=== PATIENT | female | born 1970 | race Caucasian/White ===

== ENCOUNTER 2023-12-04 08:30 | Inpatient (IN) | payer MEDICAID ==
[~2023-12-04] VITALS: Ht 162.6 cm; Wt 74.2 kg
[~2023-12-04 08:30] MED LIST: BLOO-1812 MC
[2023-12-04] MEDS: DEXTROSE 50% WATER 50ML SYRINGE IV ONE ×2 (08:41→08:47)
[2023-12-04 09:13] LABS: BASOPHILS % 0.2 % (0.0-2.0); EOSINOPHILS % 0.5 % (0.0-5.0); HEMATOCRIT. 37.6 % (36.0-48.0); HEMOGLOBIN. 12.4 g/dL (12.0-16.0); LYMPHOCYTES % 12.9 % (20.0-50.0); MEAN CORPUSCULAR HEMOGLOBIN 30.6 pg (28.0-32.0); MEAN CORPUSCULAR VOLUME 92.7 fL (81.0-99.0); MEAN PLATELET VOLUME 8.7 fl (7.4-10.4); MONOCYTES % 2.7 % (2.0-8.0); NEUTROPHILS % 83.7 % (40.0-76.0); PLATELET 246 x1000/uL (130-400); RED BLOOD CELL COUNT 4.05 mill/uL (4.2-5.4); RED CELL DISTRIBUTION WIDTH 13.4 % (11.6-14.6); WHITE BLOOD COUNT 9.3 x1000/uL (4.5-11.0)
[2023-12-04 09:23] LABS: CHLORIDE 101 mEq/L (98-107); POTASSIUM 4.9 mEq/L (3.5-5.1); SODIUM 134 mEq/L (136-145)
[2023-12-04 09:24] LABS: CARBON DIOXIDE 28 mEq/L (21-32)
[2023-12-04 09:29] LABS: CREATININE 0.8 mg/dL (0.6-1.0); GLUCOSE 207 mg/dL (70-105); UREA NITROGEN BLOOD 19 mg/dL (9-23)
[2023-12-04 09:31] LABS: ALANINE AMINOTRANSFERASE 31 IU/L (10-49); ALBUMIN 4.3 g/dL (3.2-4.8); ASPARTATE AMINOTRANSFERASE 22 IU/L (<34); BILIRUBIN TOTAL 0.4 mg/dL (0.1-1.0); PROTEIN TOTAL 6.9 g/dL (6.0-8.3)
[2023-12-04 10:19] LABS: CLARITY URINE CLOUDY (CLEAR); COLOR URINE YELLOW (YELLOW); GLUCOSE URINE 3+ (NEGATIVE); KETONES URINE NEGATIVE (NEGATIVE); LEUKOCYTE ESTERASE URINE NEGATIVE (NEGATIVE); NITRITE URINE NEGATIVE (NEGATIVE); OCCULT BLOOD URINE 3+ (NEGATIVE); PH URINE 5.5 (4.5-8.0); PROTEIN URINE 1+ (NEGATIVE); SPECIFIC GRAVITY URINE 1.017 (1.005-1.030); UROBILINOGEN URINE 0.2 E.U./dL (0.2-1.0)
[2023-12-04 10:32] LABS: SQUAMOUS EPITHELIAL CELL URINE 3+ /lpf (RARE/1+)
[2023-12-04 10:33] LABS: BACTERIA URINE 3+; WBC URINE 0-2 /hpf (0-2)
[2023-12-04] MEDS ORDERED: IPRATROPIUM/ALBUTEROL 0.5-3(2.5)MG/3ML NEB NEB PRN (17:15)
[2023-12-04] MEDS ORDERED: MAGNESIUM/ALUMINUM HYDROXIDE/SIMETHICONE 30ML UDC PO PRN (17:15)
[2023-12-04] MEDS ORDERED: DOCUSATE SODIUM 100MG CAPSULE PO PRN (17:15)
[2023-12-04] MEDS ORDERED: GUAIFENESIN 200MG/10ML SUGAR FREE UDC PO PRN (17:15)
[2023-12-04] MEDS ORDERED: DEXTROSE 50% WATER 50ML SYRINGE IV PRN (17:15)
[2023-12-04] MEDS ORDERED: NITROGLYCERIN 0.4MG TABLET SL SL PRN (17:15)
[2023-12-04] MEDS ORDERED: CLONIDINE 0.1MG TABLET PO PRN (17:15)
[2023-12-04] MEDS ORDERED: ACETAMINOPHEN 325MG TABLET PO PRN ×2 (17:15)
[2023-12-04] MEDS ORDERED: ONDANSETRON HCL 4MG/2ML INJ IV PRN (17:15)
[2023-12-04] MEDS ORDERED: ZOLPIDEM TARTRATE 5MG TABLET PO PRN (17:15)
[2023-12-04] MEDS ORDERED: KETOROLAC 15MG/ML VIAL IV PRN (17:30)
[2023-12-04] MEDS: DEXT 5%/LACTATED RINGERS 1,000 ML IV SCH (18:07)
[2023-12-04] MEDS: BLOOD SUGAR DIAGNOSTIC STRIP TEST SCH (18:07)
[2023-12-04] MEDS: INSULIN LISPRO 100 UNITS/ML SUBCUT SCH (18:09)
[2023-12-04 20:31] LABS: IRON 51 ug/dL (50-170); TRIGLYCERIDE 167 mg/dL (0-150)
[2023-12-04 20:32] LABS: LDL CHOLESTEROL 53 mg/dL (5-100)
[2023-12-04 20:33] LABS: CHOLESTEROL 115 mg/dL (<200); HDL CHOLESTEROL 43 mg/dL (>65)
[2023-12-04 20:34] LABS: TOTAL IRON BINDING CAPACITY 373 ug/dl (250-425)
[2023-12-04 20:36] LABS: FOLIC ACID (FOLATE) SERUM 17.89 ng/mL (>5.38); T4 FREE 1.14 ng/dL (0.89-1.76); THYROID STIMULATING HORMONE 0.78 uIU/mL (0.55-4.78); VITAMIN B12 SERUM 590 pg/mL (211-911)
[2023-12-04 21:14] VITALS: BP 145/78; PULSE 88; RESP 18; TEMP 36.89184; O2SAT 98
[2023-12-04 21:48] VITALS: BP 145/78; PULSE 88; RESP 17; TEMP 36.9184
[2023-12-04] MEDS: ASCORBIC ACID 500 MG TABLET PO SCH (22:24)
[2023-12-04] MEDS: FAMOTIDINE 20MG TABLET PO SCH (22:24)
[2023-12-05] VITALS: BP 120/74; PULSE 105; RESP 22; TEMP 36.72516; O2SAT 97
[2023-12-05 00:44] LABS: CREATINE KINASE 72 IU/L (34-145)
[2023-12-05 01:00] LABS: TROPONIN I HIGH SENSITIVITY < 4 ng/L (3.0-34)
[2023-12-05 04:00] VITALS: PULSE 92; RESP 14; O2SAT 100
[2023-12-05 04:54] VITALS: BP 119/72; PULSE 80; RESP 13; TEMP 36.55848; O2SAT 99
[2023-12-05 07:22] LABS: *AMPHETAMINES SCREEN URINE NEGATIVE (NEGATIVE); *BARBITURATES SCREEN URINE NEGATIVE (NEGATIVE); *BENZODIAZEPINES SCREEN URINE NEGATIVE (NEGATIVE); *COCAINE SCREEN URINE NEGATIVE (NEGATIVE); METHADONE URINE SCREEN NEGATIVE (NEGATIVE)
[2023-12-05 07:23] LABS: CANNABINOID URINE SCREEN NEGATIVE (NEGATIVE); ECSTASY MDMA SCREEN URINE NEGATIVE (NEGATIVE); OPIATES URINE SCREEN NEGATIVE (NEGATIVE); PHENCYCLIDINE URINE SCREEN NEGATIVE (NEGATIVE)
[2023-12-05 07:36] LABS: CHLORIDE 106 mEq/L (98-107); POTASSIUM 4.5 mEq/L (3.5-5.1); SODIUM 138 mEq/L (136-145)
[2023-12-05 07:40] LABS: CALCIUM 8.5 mg/dL (8.7-10.4); CARBON DIOXIDE 27 mEq/L (21-32); CREATINE KINASE MB FRACTION 0.6 ng/mL (0.5-3.6)
[2023-12-05 07:42] LABS: BASOPHILS % 0.4 % (0.0-2.0); EOSINOPHILS % 1.3 % (0.0-5.0); HEMATOCRIT. 33.6 % (36.0-48.0); HEMOGLOBIN. 11.3 g/dL (12.0-16.0); MEAN CORPUSCULAR HEMOGLOBIN 31.1 pg (28.0-32.0); MEAN CORPUSCULAR HGB CONC 33.8 g/dL (31.0-37.0); MEAN CORPUSCULAR VOLUME 92.1 fL (81.0-99.0); MEAN PLATELET VOLUME 9.1 fl (7.4-10.4); MONOCYTES % 6.6 % (2.0-8.0); NEUTROPHILS % 66.7 % (40.0-76.0); PLATELET 250 x1000/uL (130-400); RED BLOOD CELL COUNT 3.64 mill/uL (4.2-5.4); RED CELL DISTRIBUTION WIDTH 13.5 % (11.6-14.6)
[2023-12-05 07:43] LABS: CREATINE KINASE 61 IU/L (34-145)
[2023-12-05 07:45] LABS: ALANINE AMINOTRANSFERASE 28 IU/L (10-49); CREATININE 0.7 mg/dL (0.6-1.0); GLUCOSE 131 mg/dL (70-105); UREA NITROGEN BLOOD 15 mg/dL (9-23)
[2023-12-05 07:47] LABS: ALBUMIN 3.5 g/dL (3.2-4.8); ASPARTATE AMINOTRANSFERASE 22 IU/L (<34); PHOSPHORUS 2.8 mg/dL (2.5-4.9)
[2023-12-05 07:48] LABS: BILIRUBIN TOTAL 0.3 mg/dL (0.1-1.0); PROTEIN TOTAL 6.1 g/dL (6.0-8.3)
[2023-12-05 07:54] LABS: HEPATITIS B SURFACE ANTIGEN NEGATIVE (Negative); TROPONIN I HIGH SENSITIVITY < 4 ng/L (3.0-34)
[2023-12-05 08:00] VITALS: BP 128/76; PULSE 88; RESP 16; TEMP 36.61404; O2SAT 98
[2023-12-05] MEDS: ASPIRIN 81MG EC TABLET PO SCH (08:12)
[2023-12-05] MEDS: ZINC SULFATE 220 MG ( 50 ) CAPSULE PO SCH (08:13)
[2023-12-05] MEDS: ENOXAPARIN 40MG/0.4ML SYR SUBCUT SCH (08:13)
[2023-12-05 08:15] LABS: HEPATITIS C AB NON REACTIVE (Neg) (Negative)
[2023-12-05 11:07] VITALS: BP 128/68; PULSE 78; TEMP 98; O2SAT 98
== END 2023-12-05 15:36 | disposition home or self-care (01) | DRG 420 ==
LOC: ER 08:30 → 5WST 12:13 → EDBEDREQ 12:27 → EDBEDREQTM 12:27 → 3WST 21:04
PROVIDERS: ADMIT Internal Medicine; ATTEND Internal Medicine
DX: E11.649 Type 2 diabetes mellitus with hypoglycemia without coma (principal); G93.41 Metabolic encephalopathy; I10 Essential (primary) hypertension; E66.9 Obesity, unspecified; E78.00 Pure hypercholesterolemia, unspecified; Z68.28 Body mass index [BMI] 28.0-28.9, adult; Z79.899 Other long term (current) drug therapy
CPT/HCPCS: 36415; 71045; 80053; 80061; 80305; 81003; 82550; 82553; 82607; 82746; 82962; 83036; 83540; 83550; 83735; 84100; 84439; 84443; 84484; 85025; 86705; 87340; 93005; 93970; 99285; J1650; J1815; J7121